=== PATIENT | male | born 1970 ===

== ENCOUNTER 2021-03-07 11:36 | Day surgery (SDC) | payer OTHER ==
[2021-03-03 15:33] LABS: Absolute Lymphocytes (CBC) 1.7 K/uL (0.7-4.9); Basophils % 0.6 % (0-1.3); Hematocrit 38.2 % (39.6-49.0); Lymphocytes % 22.1 % (15.3-44.8); MPV 7.4 fL (7.6-11.3); RBC Red Blood Cell Count 4.31 M/uL (4.33-5.43)
[2021-03-03 15:39] LABS: Protime INR 0.96
[2021-03-03 15:45] LABS: Urine Appearance CLEAR (Clear); Urine Bilirubin NEGATIVE (Negative); Urine Blood 2+ (Negative); Urine Color YELLOW (Yellow); Urine Glucose NEGATIVE (Negative); Urine Protein NEGATIVE (Negative); Urine Specific Gravity 1.025 (1.005-1.030)
[2021-03-03 15:46] LABS: Urine Microscopic Reflex ORDER UMIC
[2021-03-03 15:52] LABS: Potassium 4.8 mmol/L (3.5-5.1)
--- NOTE | 2021-03-03 16:04 | RAD REPORT ---
EXAM DESCRIPTION: RAD - Chest Pa And Lat (2 Views) - 03/03/2021 3:59 pm CLINICAL HISTORY: preop COMPARISON: Chest Pa And Lat (2 Views) dated 02/24/2018; Abdomen 1 View (KUB) dated 01/12/2016; CHEST PA AND LAT 2 VIEW dated 05/07/2012; CHEST PA AND LAT 2 VIEW dated 05/07/2011 FINDINGS: Lines: None. Lungs: No evidence of edema or pneumonia. Pleural: No significant pleural effusions or pneumothorax. Cardiac: The heart size is within normal limits. Bones: No acute fractures. Other: IMPRESSION: No acute cardiopulmonary disease.
[2021-03-03 16:07] LABS: Urine Bacteria <20 /HPF (NONE SEEN)
[2021-03-07] MEDS ORDERED: Ringers Lactate 1,000 ML IV ONE (11:42)
[2021-03-07] MEDS: CEFAZOLIN/SWI 2gm 2 GM/20 ML SYR ONE ×2 (14:54→17:19)
[2021-03-07] MEDS ORDERED: CELECOXIB 100 MG CAPSULE ONE (15:01)
[2021-03-07] MEDS ORDERED: ACETAMINOPHEN 500 MG TAB ONE (15:01)
[2021-03-07] MEDS ORDERED: propofoL 200 MG/20 ML VIAL IV ONE (16:47)
[2021-03-07] MEDS ORDERED: LIDOCAINE 1% MPF 5 ML VIAL ONE (16:47)
[2021-03-07] MEDS ORDERED: FENTANYL CITR 100 MCG/2 ML ONE (16:48)
[2021-03-07] MEDS ORDERED: ONDANSETRON 4 MG/2 ML VIAL ONE (17:29)
[2021-03-07] MEDS ORDERED: dexAMETHasone 10 MG/ML VIAL ONE (17:29)
[2021-03-07] MEDS ORDERED: KETOROLAC 30 MG/ML INJ ONE (17:29)
[2021-03-07] MEDS ORDERED: CODEINE 30MG/APAP 300MG TAB PO PRN (18:02)
[2021-03-07] MEDS ORDERED: PHENAZOPYRIDINE 100MG TAB PO ONE ×2 (18:02→18:42)
[2021-03-07] MEDS ORDERED: CODEINE 30MG/APAP 300MG TAB ONE (18:42)
--- NOTE | 2021-03-07 18:47 | OP ---
Date of Procedure: 03/07/2021 Surgeon: CHERISE GOMEZ Preoperative Diagnoses: 1.Left nephroureterolithiasis. 2.Bilateral nephrolithiasis. Postoperative Diagnoses: 1.Left nephroureterolithiasis. 2.Bilateral nephrolithiasis. Principal Procedures: 1.Cystoscopy. 2.Left retrograde pyelography. 3.Left ureteral stent placement. Findings: Residual 6 x 9 mm distal left ureteral calculus with mild pelvocaliectasis. Indication For Procedure: Mr. Norton presented to the [facility] where he was seen by nurse pract Zen campbell with left flank pain associated with the presence of an obstructing 6 mm in diamete r by 9 mm in length proximal ureteral calculus. Between last when he was seen in the office and today, he had resolution of his pain, but he had not passed the stone. I counseled him that the re is frequent where incomplete obstruction or due to decline in the GFR of the kidney, a person may not experience pain associated with a persistently obstructing stone. As a result, I recommended ope rative evaluation with retrograde pyelogram and stent placement. He elected to proceed. Procedure In Detail: The patient was consented in the preoperative holding area before being transfe rred to the operative suite where general anesthesia was induced. He was given Ancef 2 g IV antimicr obial prophylaxis and pneumo boots were provided for DVT prophylaxis. He was placed in lithotomy pos ition, padded and secured to the table appropriately. The case was begun using a 22-Latvian rigid cys toscope to traverse the urethra and into the bladder with ease. His bladder was surveyed in its enti rety, and there were no mucosal lesions, foreign bodies or stones noted throughout. The ureteral sunita fices were orthotopic in location. Left ureteral orifice was cannulated using the tip of the Sensor wire and a spot fluoroscopic image was obtained. There was a density in the region of the putative u reter suspicious for the presence of a calculus. Injection of contrast did reveal the evidence of on ly minimal ureteronephrosis with mild pelvocaliectasis, but active pyelovenous reflux indicative of s ome active and ongoing obstruction. Within the distal ureter approximately 4 cm from the UVJ, there was a density around which the contrast did pass. This was consistent with the obstructing calculus, attempts to pass the 5-Latvian ureteral access catheter up the ureter was met by resistance at that p oint. As a result, I passed a Sensor wire via the 5-Latvian ureteral access catheter and into the upp er pole of the kidney as observed fluoroscopically. Over that wire, I then passed a 6-Latvian by 26 c m double-J ureteral stent where a coil was observed fluoroscopically in the upper pole and 1 cystosco pically was formed in the bladder. His bladder was then decompressed of fluid and urine, and he was taken out of lithotomy position. He was then awakened from general anesthesia, transferred to a [facility] and then transferred to the recovery room in good condition. Complications: None. Discharge Disposition: He will require definitive management of his calculi with ureteroscopy and la ser lithotripsy within the coming weeks. Because he has both a ureteral calculus as well as nephroli thiasis as observed on CT scan, the entirety of his collecting system on the left side can be managed at that time. Subsequent metabolic stone profiling will be required given the presence of stones on the right side as well. ISH/MODL Voice ID: [id number] Report ID: [id number]
[2021-03-07 19:04] VITALS: BP 127/79; TEMP 97.2; O2SAT 100
--- NOTE | 2021-03-07 21:55 | RAD REPORT ---
EXAM DESCRIPTION: RAD - Cystography - 03/07/2021 9:04 pm CLINICAL HISTORY: REMOVAL OF STENTS COMPARISON: No comparisons FINDINGS/IMPRESSION: Seven intraoperative fluoroscopic images were submitted showing cannulation of the left ureter and placement of a double-J ureteral stent.
== END 2021-03-07 19:01 | disposition home or self-care (01) ==
LOC: OR 11:36
PROVIDERS: ATTEND Urology
PROC: 0T778DZ Dilation of Left Ureter with Intraluminal Device, Via Natural or Artificial Opening Endoscopic (ICD-10-PCS; principal; 2021-03-07 14:00)
DX: N20.1 Calculus of ureter (principal); N20.0 Calculus of kidney; Z20.822 Contact with and (suspected) exposure to COVID-19
CPT/HCPCS: 52332; 93005; 85025; 80048; 36415; 85610; 85730; 71046; 51600; 74430; U0003; J2704; J3010; J1100; J0690; J7120; J2405; 81003; 81015

== ENCOUNTER 2021-03-28 06:46 | Day surgery (SDC) | payer OTHER ==
[2021-03-28] MEDS ORDERED: AMPICILLIN SODIUM 2 GM in NA CHLORIDE 0.9% 100 ML IVPB SCH (07:00)
[2021-03-28] MEDS ORDERED: Ringers Lactate 1,000 ML IV ONE (07:04)
[2021-03-28] MEDS ORDERED: GENTAMICIN 100 MG/100 ML BAG 100 ML IV ONE ×2 (07:11)
[2021-03-28] MEDS ORDERED: MIDAZOLAM HCL 2 MG/2 ML INJ ONE (07:11)
[2021-03-28] MEDS ORDERED: GENTAMICIN 80 MG/100 ML BAG 80 MG/100 ML BAG IV ONE (07:11)
[2021-03-28] MEDS ORDERED: propofoL 200 MG/20 ML VIAL IV ONE (07:12)
[2021-03-28] MEDS ORDERED: GLYCOPYRROLATE 0.2 MG/ML SYR ONE (07:12)
[2021-03-28] MEDS ORDERED: LIDOCAINE 1% MPF 5 ML VIAL ONE (07:12)
[2021-03-28] MEDS ORDERED: FENTANYL CITR 100 MCG/2 ML ONE (07:12)
[2021-03-28] MEDS ORDERED: ROCURONIUM 50 MG/5 ML VIAL IV ONE (07:14)
[2021-03-28] MEDS ORDERED: ACETAMINOPHEN 500 MG TAB ONE (07:26)
[2021-03-28] MEDS ORDERED: Mastisol Adhesive Liq ONE (08:17)
[2021-03-28] MEDS: HYDROMORPHONE HCL 1 MG/ML INJ ONE ×4 (08:51→09:16)
--- NOTE | 2021-03-28 08:51 | RAD REPORT ---
EXAM DESCRIPTION: RAD - Urethrocystogrphy Retrograde - 03/28/2021 8:34 am CLINICAL HISTORY: LT URETEROSCOPY COMPARISON: Cystography dated 03/07/2021 FINDINGS/IMPRESSION: Fourteen intraoperative fluoroscopic images were submitted demonstrating placem ent of a left-sided double-J ureteral stent. Fluoro time: 12 seconds
[2021-03-28] MEDS ORDERED: PHENAZOPYRIDINE 100MG TAB PO ONE ×3 (09:00→10:02)
[2021-03-28] MEDS ORDERED: CODEINE 30MG/APAP 300MG TAB PO PRN (09:00)
--- NOTE | 2021-03-28 09:13 | OP ---
Surgeon: CHERISE GOMEZ Preoperative Diagnosis: Left nephroureterolithiasis. Postoperative Diagnosis: Left nephroureterolithiasis. Principal Procedures: 1.Cystoscopy. 2.Left ureteroscopy with stone basketing and extraction. 3.Left ureteral stent exchange. Indication For Procedure: Mr. Norton presented to the Urology Clinic with pain due to an obstructing left distal ureteral calculus. He underwent stent placement last month and presents today for defini tive management of that calculus. Of note, he had some smaller volume nephrolithiasis also present. Procedure In Detail: The patient was consented in the preoperative holding area before being transfe rred to operative suite where general anesthesia was induced. He was given ampicillin and gentamicin , IV antimicrobial prophylaxis, and pneumo boots were provided for DVT prophylaxis. He was placed in the lithotomy position, padded and secured to the table appropriately. His genitalia were prepped u sing Hibiclens and draped in standard fashion. The case was begun using a 22-Kiswahili rigid cystoscope to traverse the urethra and enter his bladder with ease. The bladder was surveyed and the left uret eral stent was emanating from the ureteral orifice. I thus grasped it using alligator graspers and d elivered it via the meatus. I left the tip of the proximal end of the stent within the distal ureter and utilized this to pass a Sensor wire via the stent into the putative upper pole of the kidney. A coil was observed fluoroscopically there. I then performed direct vision semi-rigid ureteroscopy al ongside the wire and gained access into the ureteral orifice and the distal ureter where the stone wa s encountered. Because it was within 3 cm of the ureteral orifice, I utilized a basket to grasp the stone and was able to deliver it via the ureter and out of the meatus with ease. This was sent for c hemical analysis. I then reinserted the ureteroscope and navigated it into the mid ureter before pas sing a second Bentson guidewire via the ureteroscope into the calices of the kidney as observed fluor oscopically. I then removed the semi-rigid ureteroscope and passed over the Bentson guidewire a flex ible digital ureteroscope. I was able to navigate the digital ureteroscope into the upper pole of th e kidney as observed fluoroscopically. I then surveyed each of the calices of the kidney. Within th e midpole calyx, there was a tiny Sonny's plaque, likely no larger than 1 mm in diameter. I was ab le to dislodge this from its calyceal location. I then surveyed into the lower pole posterior calyx where an additional 2 calculi were noted, 1 that was likely less than 1 mm in diameter and the other that was probably 3 or 4 mm in maximal diameter and somewhat irregular. Because of its lower pole po sterior location, the scope was maximally flexed and made it challenging to operate in that location. I thus utilized the basket again to grasp 1 of the fragments and was able to deliver it out of the lower pole location and I placed it into the mid proximal ureter. I then returned and again surveyed the calices including the lower pole, but was unfortunately unable to identify any additional calcul i available for grasping or fragmentation. As a result, I then surveyed back into the renal pelvis a nd down through the proximal into the mid and distal ureter. With no other stones noted or evidence of ureteral injury, the ureteroscopy portion was completed. I then back-loaded the rigid cystoscope over the Sensor wire and placed a 6-Kiswahili x 26 cm double-J left ureteral stent which was left on its tether. A coil was observed fluoroscopically within the upper pole and 1 cystoscopically was formed in the bladder. The tether was then secured to the glans penis using Mastisol and Steri-Strips. Th patient's bladder was decompressed and he was then taken out of the lithotomy position. He was michael kened from general anesthesia, transferred to a stretcher and then transferred to the recovery room i n good condition. Complications: None. Discharge Disposition: He should follow up in the Urology Clinic for tethered ureteral stent removal on or Saturday of this week with either nurse practitioner, Zen, or myself in clinic. ISH/KAIDEN Voice ID: [id number] Report ID: [id number]
[2021-03-28 09:22] VITALS: TEMP 97.5; O2SAT 100
[2021-03-28 09:42] VITALS: BP 120/75
[2021-03-28] MEDS ORDERED: CODEINE 30MG/APAP 300MG TAB ONE (09:44)
[2021-03-28] MEDS ORDERED: CODEINE 30MG/APAP 300MG TAB PO ONE (10:00)
== END 2021-03-28 10:30 | disposition home or self-care (01) ==
LOC: OR 06:46
PROVIDERS: ATTEND Urology
PROC: 0T778DZ Dilation of Left Ureter with Intraluminal Device, Via Natural or Artificial Opening Endoscopic (ICD-10-PCS; 2021-03-28)
PROC: 0TC78ZZ Extirpation of Matter from Left Ureter, Via Natural or Artificial Opening Endoscopic (ICD-10-PCS; principal; 2021-03-28 07:30)
DX: N20.0 Calculus of kidney (principal); R79.89 Other specified abnormal findings of blood chemistry; Z20.822 Contact with and (suspected) exposure to COVID-19
CPT/HCPCS: 87086; 88300; 82360; 74450; 51610; 52352; 52332; U0003; J2704; J2250; J3010; J1170 ×2; J1580 ×3; J7120; J0290; 87088